=== PATIENT | female | born 1955 | race Caucasian/White ===

== ENCOUNTER 2017-01-10 20:20 | Emergency (ER) | payer MEDICAID ==
[~2017-01-10] VITALS: Ht 162.6 cm; Wt 75.7 kg
[~2017-01-10 20:20] MED LIST: ASPI81TA3 PO; CARV12.579 PO; LISI40TA9 PO; SIMV20TA2 PO
[2017-01-10 20:28] VITALS: Ht 162.6 cm; Wt 75.7 kg
[2017-01-10] MEDS ORDERED: ATOR80TA75 PO (21:52)
[2017-01-10] MEDS ORDERED: ISOS30TA5 PO (21:53)
[2017-01-10] MEDS ORDERED: ASPI-664 PO (21:53)
[2017-01-10] MEDS ORDERED: CARV12.579 PO (21:53)
[2017-01-10] MEDS ORDERED: LOSA100T7 PO (21:54)
[2017-01-10] MEDS ORDERED: CLON-379 PO (21:54)
--- NOTE | 2017-01-10 22:17 | ERD ---
ER Documentation Chief Complaint Chief Complaint headache with htn HPI The patient is a 61-year-old female, presenting to the ER because of elevated blood pressure at home, associated with intermittent headache and dizziness for 1 week. She has similar symptoms previously whenever her blood pressure is elevated. She denies syncope, near syncope, neck pain, chest pain, dyspnea, abdominal pain, vomiting. She is does not smoke nor drink Past medical history: Hypertension, dyslipidemia Past surgical history: Right carpal tunnel surgery ROS All systems reviewed and are negative except as per history of present illness. Medications Home Meds Active Scripts Hydrochlorothiazide* (Hydrochlorothiazide*) 25 Mg Tab, 25 MG PO DAILY, #30 TAB Prov:JUSTIN NORRIS MD 01/11/17 Reported Medications Clonidine Hcl* (Clonidine Hcl*) 0.1 Mg Tab, 0.1 MG PO BID, TAB 01/10/17 Losartan Potassium* (Losartan Potassium*) 100 Mg Tablet, 100 MG PO DAILY, TAB 01/10/17 Isosorbide Mononitrate* (Isosorbide Mononitrate*) 30 Mg Tab.er.24h, 30 MG PO DAILY, TAB 01/10/17 Carvedilol* (Carvedilol*) 12.5 Mg Tablet, 12.5 MG PO BID, #60 TAB 01/10/17 Aspirin* (Aspirin* EC) 81 Mg Tablet.dr, 81 MG PO DAILY, TAB 01/10/17 Atorvastatin* (Atorvastatin*) 80 Mg Tablet, 80 MG PO QHS, #30 TAB 01/10/17 Discontinued Reported Medications Lisinopril* (Lisinopril*) 40 Mg Tablet, 40 MG PO DAILY, #30 TAB 10/01/15 Discontinued Scripts Simvastatin (Simvastatin) 20 Mg Tablet, 20 MG PO QHS, #30 TAB Prov:SHANTE ROSS MD 10/03/15 Carvedilol* (Carvedilol*) 12.5 Mg Tablet, 12.5 MG PO BID, #1 TAB Prov:SHANTE ROSS MD 10/03/15 Aspirin (Aspirin) 81 Mg Chew, 81 MG PO DAILY, #1 TAB Prov:SHANTE ROSS MD 10/03/15 Allergies Allergies: Coded Allergies: metronidazole (Unverified Allergy, Unknown, rash, 01/10/17) PMhx/Soc History of Surgery: No Anesthesia Reaction: No Hx Neurological Disorder: No Hx Respiratory Disorders: No Hx Cardiac Disorders: Yes (HTN) Hx Psychiatric Problems: No Hx Miscellaneous Medical Probl: No Hx Alcohol Use: No Hx Substance Use: No Hx Tobacco Use: No Smoking Status: Never smoker Physical Exam Vitals Vital Signs Date Time Temp Pulse Resp B/P Pulse Ox O2 Delivery O2 Flow Rate FiO2 01/10/17 23:34 86 17 168/90 99 Room Air 01/10/17 23:06 76 14 161/90 99 Room Air 01/10/17 22:18 73 16 227/129 98 Room Air 01/10/17 20:28 98.7 76 20 232/123 97 Physical Exam Const: No acute distress. Head: Atraumatic. Eyes: Normal Conjunctiva. ENT: Normal External Ears, Nose and Mouth. Neck: Full range of motion. No meningismus. Resp: Clear to auscultation bilaterally. Cardio: Regular rate and rhythm. Abd: Soft, non distended, normal bowel sounds, non tender. Skin: No petechiae or rashes. Back: No midline or flank tenderness. Ext: No cyanosis, or edema. Neur: Awake and alert. No focal deficit Psych: Normal Mood and Affect. Result Diagram: 01/10/17 2100 01/10/17 2100 Results 24 hrs Laboratory Tests Test 01/10/17 21:00 White Blood Count 5.910^3/ul Red Blood Count 4.8410^6/ul Hemoglobin 14.2g/dl Hematocrit 44.0% Mean Corpuscular Volume 90.9fl Mean Corpuscular Hemoglobin 29.3pg Mean Corpuscular Hemoglobin Concent 32.3g/dl Red Cell Distribution Width 14.5% Platelet Count 70035^3/UL Mean Platelet Volume 10.6fl Neutrophils % 52.6% Lymphocytes % 35.5% Monocytes % 9.7% Eosinophils % 1.7% Basophils % 0.5% Nucleated Red Blood Cells % 0.0/100WBC Neutrophils # 3.110^3/ul Lymphocytes # 2.110^3/ul Monocytes # 0.610^3/ul Eosinophils # 0.110^3/ul Basophils # 0.010^3/ul Nucleated Red Blood Cells # 0.010^3/ul Prothrombin Time 12.3Sec Prothrombin Time Ratio 1.0 INR International Normalized Ratio 0.91 Activated Partial Thromboplast Time 26.5Sec Sodium Level 143mmol/L Potassium Level 4.3mmol/L Chloride Level 107mmol/L Carbon Dioxide Level 26mmol/L Anion Gap 14 Blood Urea Nitrogen 23mg/dl Creatinine 1.04mg/dl Glucose Level 96mg/dl Calcium Level 9.6mg/dl Total Bilirubin 0.2mg/dl Direct Bilirubin 0.00mg/dl Indirect Bilirubin 0.2mg/dl Aspartate Amino Transf (AST/SGOT) 32IU/L Alanine Aminotransferase (ALT/SGPT) 27IU/L Alkaline Phosphatase 64IU/L Troponin I < 0.012ng/ml Total Protein 7.6g/dl Albumin 4.5g/dl Globulin 3.10g/dl Albumin/Globulin Ratio 1.45 Lipase 186U/L Current Medications Medications (Trade) Dose Ordered Sig/Porsha Route PRN Reason Start Time Stop Time Status Last Admin Dose Admin Hydralazine HCl (Apresoline) 10 mg ONCE ONCE IV 01/10/17 22:30 01/10/17 22:31 DC 01/10/17 22:58 Procedures/[place] [id number] Radiology Main Line: [phone] DIAGNOSTIC IMAGING REPORT Patient: SMILEY DODGE : 1955 Age: 61 Sex: F MR #: [id number] DOS: 01/10/17 2218 Ordering MD: JUSTIN NORRIS MD Location: E/R Room/Bed: PROCEDURE: CT Head without. CLINICAL INDICATION: Dizziness. TECHNIQUE: The study was performed utilizing a multi-slice, multidetector CT scanner. Direct spiral 1 mm axial sections were obtained through the head without the use of intravenous contrast material. 1 or more of the following dose reduction techniques were utilized: Automated exposure control, adjustment of the mA and/or kV according to patient's size, iterative reconstruction technique. Coronal and sagittal reformations were obtained. The images were reviewed on a PACS workstation. RADIATION DOSE: CTDIvol: 44.6 mGy DLP: 720.2 mGy-cm COMPARISON: No prior studies are available for comparison. FINDINGS: There is no intracranial hemorrhage, extra-axial fluid collection, mass lesion, midline shift or hydrocephalus. The ventricles, sulci and cisterns are within normal limits. The white matter is unremarkable. The reid-white matter differentiation is preserved. The basal cisterns are patent. The midline structures are intact. The orbits, calvarium and extracranial soft tissues are normal in appearance. The visualized paranasal sinuses, mastoid air cells and middle ear cavities are normally aerated. IMPRESSION: 1. No acute intracranial abnormality. No intracranial hemorrhage, extra-axial fluid collection, mass lesion or hydrocephalous. RPTAT: HGAS .Lizandro Poon MD, MD Date Time Electronically viewed and signed by .Lizandro Poon MD, MD on 01/10/2017 22: 51 .S/ CC: JUSTIN NORRIS MD EKG: Read by emergency physician Rate/Rhythm: Normal Sinus Rhythm 65 beats/min QRS, ST, T-waves: No ST elevation, no T inversion, PVC Impression: Abnormal EKG MEDICAL MAKING DECISION: The patient is a 61-year-old female, presenting with acute accelerated hypertension. She was treated with hydralazine 10 mg IV for acute accelerated hypertension with good response. She is stable for outpatient follow-up The differential diagnoses considered include but are not limited to subarachnoid hemorrhage, occult trauma, CVA, meningitis, encephalitis, hypertension, tension, migraine, cluster, narcotic withdrawal, cervical spine disease. Departure Diagnosis: Primary Impression: Accelerated hypertension Condition: Good Comments She was discharged with HCTZ 25 mg daily I discussed the findings with the patient. I advised the patient to follow-up with the primary physician in about 1-2 days, sooner if needed and return if any concern. Disclaimer: Inadvertent spelling and grammatical errors are likely due to EHR/ dictation software use and do not reflect on the overall quality of patient care. Also, please note that the electronic time recorded on this note does not necessarily reflect the actual time of the patient encounter. JUSTIN NORRIS MD Jan 10, 2017 22:17
[2017-01-10] MEDS ORDERED: hydrALAzine 20 MG INJ IV ONE (22:30)
--- NOTE | 2017-01-10 22:51 | RADRPT ---
PROCEDURE: CT Head without. CLINICAL INDICATION: Dizziness. TECHNIQUE: The study was performed utilizing a multi-slice, multidetector CT scanner. Direct spira l 1 mm axial sections were obtained through the head without the use of intravenous contrast materia l. 1 or more of the following dose reduction techniques were utilized: Automated exposure control, adjustment of the mA and/or kV according to patient's size, iterative reconstruction technique. Co caio and sagittal reformations were obtained. The images were reviewed on a PACS workstation. RADIATION DOSE: CTDIvol: 44.6 mGyDLP: 720.2 mGy-cm COMPARISON: No prior studies are available for comparison. FINDINGS: There is no intracranial hemorrhage, extra-axial fluid collection, mass lesion, midline shift or hyd rocephalus. The ventricles, sulci and cisterns are within normal limits. The white matter is unrem arkable. The reid-white matter differentiation is preserved. The basal cisterns are patent. The m idline structures are intact. The orbits, calvarium and extracranial soft tissues are normal in ying earance. The visualized paranasal sinuses, mastoid air cells and middle ear cavities are normally ae rated. IMPRESSION: 1. No acute intracranial abnormality. No intracranial hemorrhage, extra-axial fluid collection, ma ss lesion or hydrocephalous. RPTAT: HGAS .Lizandro Poon MD, MD Date Time Electronically viewed and signed by .Lizandro Poon MD, on 01/10/2017 22:51 .S/
[2017-01-11] MEDS ORDERED: HYDR25TA6 PO (00:05)
[2017-01-11 00:15] VITALS: BP 155/96; PULSE 82; RESP 16
== END 2017-01-11 00:17 | disposition home or self-care (01) ==
LOC: E/R 20:20
DX: I10 Essential (primary) hypertension (principal); R07.9 Chest pain, unspecified; Z79.82 Long term (current) use of aspirin
CPT/HCPCS: 36415; 70450; 80053; 83690; 84484; 85025; 85610; 85730; 93005; 96374; J0360; Z7502

== ENCOUNTER 2017-12-13 14:31 | Inpatient (IN) | END 2017-12-16 14:15 | disposition home or self-care (01) | DRG 305 ==